=== PATIENT | female | born 2000 | race Caucasian/White ===

== ENCOUNTER 2023-07-21 07:04 | Outpatient (RCR) | payer OTHER, SELFPAY ==
[2023-07-21 08:52] LABS: Hematocrit 35.1 % (37.0-47.0); Hemoglobin 11.1 g/dL (12.0-15.0)
[2023-07-21 09:08] LABS: Glucose 1 Hour PP 50gm Dose 107 mg/dL
[2023-07-21 09:44] LABS: HIV 1/2 Ab P24 Ag Result Negative (Negative)
[2023-07-21] MEDS: RHO(D) IMMUNE GLOBULIN 300 MCG/2 ML SYRINGE IM (15:44)
== END 2023-10-19 23:59 | disposition home or self-care (01) ==
LOC: ANHLAB 07:04
PROVIDERS: PCP Family Medicine; Visit Provider Advanced Practice Midwife
DX: Z11.4 Encounter for screening for human immunodeficiency virus [HIV] (principal); Z29.13 Encounter for prophylactic Rho(D) immune globulin; O36.0130 Maternal care for anti-D [Rh] antibodies, third trimester, not applicable or unspecified; Z3A.00 Weeks of gestation of pregnancy not specified
CPT/HCPCS: 36415; 82947; 85014; 85018; 85461; 86703; 86850; 86900; 86901; 90384; 96372; G0432; J2790

== ENCOUNTER 2023-10-03 10:05 | Inpatient (IN) | payer OTHER, SELFPAY ==
[2023-10-03] VITALS (122 sets, daily range): BP systolic 82–154; BP diastolic 47–140; PULSE 70–205; RESP 16–19; TEMP 36.7–37.2; O2SAT 94–100; BMI 43.4
[2023-10-03] MEDS: LACTATED RINGERS 1,000 ML 125 ML IV CONT ×2 (11:41→15:00)
[2023-10-03] MEDS: AMPICILLIN 2 GM/NS 100 ML 2 GM/100 ML BAG IVPB (11:41)
[2023-10-03 11:45] LABS: Basophils Absolute Auto 0.1 K/mm3 (0.0-0.1); Basophils Percent Auto 0.4 % (0.2-1.2); Eosinophils Absolute Auto 0.1 K/mm3 (0-0.3); Eosinophils Percent Auto 0.4 % (0-4.4); Hematocrit 39.4 % (37.0-47.0); Hemoglobin 12.5 g/dL (12.0-15.0); Immature Granulocyte Absolute 0.13 K/mm3 (0.00-0.031); Immature Granulocyte Percent A 0.9 % (0-0.5); Lymphocytes Absolute Auto 2.45 K/mm3 (0.9-3.2); Lymphocytes Percent Auto 16.7 % (18.3-44.2); Mean Corpuscular HGB Conc 31.7 g/dl (32-36); Mean Corpuscular Hemoglobin 27.7 pg (26-34); Mean Corpuscular Volume 87.2 fl (80-100); Mean Platelet Volume 10.9 fl (7.4-10.4); Monocytes Absolute Auto 0.9 K/mm3 (0.1-0.6); Neutrophils Absolute Auto 11.1 K/mm3 (1.3-6.7); Neutrophils Percent Auto 75.6 % (45.5-73.1); Platelet Count Result 255 k/mm3 (150-375); Red Blood Count 4.52 M/mm3 (4.2-5.4); Red Cell Distribution Width 15.8 % (11.5-14.5); White Blood Count 14.7 K/mm3 (4.5-10.0)
--- NOTE | 2023-10-03 11:47 | LDADM ---
This patient, Gabriela Ibarra, was admitted to Labor/Delivery/Recovery 105 on 10/03/23 at 10:05. Plans for labor, pain management and were discussed with patient. Patient/family oriented to hospital policies and general routines including ID bracelet, bed and alarms, visiting hours, pain management, procedures, bathroom and other care routines, personal items, smoking policy, room service/diet and guest tray routines, security routines, and visiting hours. Patient/Family are encouraged to report perceived risks to care and to ask questions if they do not understand what they are told or what they should do. See OBIX for further documentation.
--- NOTE | 2023-10-03 12:45 | P.PNAN_ITS ---
Anes - Eval Pre Procedure Procedure: labor epidural Date/Time: 10/03/23 12:45 Surgeon: Jesse Preop Diagnosis: pain during labor Pre Op Diagnosis: Labor Patient Data Age: 23 Gender: F Height: 1.63 m Weight: 115 kg Last Vital Signs Pulse 78 10/03/23 12:16 BP 123/71 10/03/23 12:16 Pulse Ox 100 10/03/23 12:43 O2 Del Method Room Air 10/03/23 11:46 Allergies Allergy/AdvReac Type Severity Reaction Status Date / Time No Known Allergies Allergy Verified 09/10/23 12:33 Home Medications Medication Instructions Recorded Confirmed Type Classic 1 tab-cap PO DAILY 09/10/23 09/10/23 History Laboratory Tests 10/03/23 11:19 WBC 14.7 H K/mm3 (4.5-10.0) RBC 4.52 M/mm3 (4.2-5.4) Hgb 12.5 g/dL (12.0-15.0) Hct 39.4 % (37.0-47.0) MCV 87.2 fl (80-100) MCH 27.7 pg (26-34) MCHC 31.7 L g/dl (32-36) RDW 15.8 H % (11.5-14.5) Plt Count 255 k/mm3 (150-375) MPV 10.9 H fl (7.4-10.4) Immature Gran % (Auto) 0.9 H % (0-0.5) Neut % (Auto) 75.6 H % (45.5-73.1) Lymph % (Auto) 16.7 L % (18.3-44.2) [place] % (Auto) 6.0 % (2.6-8.5) Eos % (Auto) 0.4 % (0-4.4) Baso % (Auto) 0.4 % (0.2-1.2) Lymph # (Auto) 2.45 K/mm3 (0.9-3.2) [place] # (Auto) 0.9 H K/mm3 (0.1-0.6) Eos # (Auto) 0.1 K/mm3 (0-0.3) Baso # (Auto) 0.1 K/mm3 (0.0-0.1) Abs Immat Gran (auto) 0.13 H K/mm3 (0.00-0.031) Absolute Neuts (auto) 11.1 H K/mm3 (1.3-6.7) Absolute Nucleated RBC 0.0 K/mm3 (0.0-0.012) Nucleated RBC % 0.0 % (0.0-0.2) RPR Pending Patient hx anesthesia problems: none Family hx anesthesia problems: none Results Review: All pre-operative results and documents have been reviewed as part of the pre- operative evaluation. PMF Family History Family History Other No pertinent family history Social History Social History Smoking status: Never smoker Alcohol intake: never Substance use: never Lack of Transportation: No Lack of Food: Never True Current Housing: I Have Housing Concerned About Future Housing: No Difficulty Paying Gas/Electric Bills: No Difficulty Paying for Meds: No Currently Unemployed: No Education: Associate Degree Difficulty w/ Childcare or Family Care: No Spiritual care concerns: No Exam Day of Procedure 10/03/23 12:45 Patient weight: normal Heart: regular rate and rhythm Lungs: normal air movement Airway: Mallampati scale class II Neurological: alert and oriented
--- NOTE | 2023-10-03 13:20 | WPDOBADMIT ---
Obstetrics - Admit Note Admission Note: record reviewed. No pertinent additions to the history and/or any subsequent changes in the physical findings that are not consistent with the expected course of the were found. Additions to the history and/or subsequent changes in the physical findings follow. SVE /-2, AROM small amount of clear, odorless fluid, anticipate vaginal delivery
[2023-10-03] MEDS: OXYTOCIN 30 UNITS/NS 500 ML 30 UNITS/500 ML BAG IV CONT (13:50)
[2023-10-03] MEDS: AMPICILLIN 1 GM/NS 50 ML 1 GM/50 ML BAG IVPB (15:49)
[2023-10-03] MEDS: SODIUM CHLORIDE 0.9% IV 300 ML 600 ML I-UTERINE (16:05)
--- NOTE | 2023-10-03 18:18 | PM.OBPRVD ---
OB - Vaginal Delivery Note Procedure Delivery date: 10/03/23 Induction method: None Delivery augmentation: Rupture of Membranes and Pitocin Delivery monitor: External FHT and Internal FHT Route of delivery: Episiotomy description: None Laceration Description: Vaginal and Labial (right) Delivery repair: vicryl Specimen: No Quantitative Blood Loss (ml): 100 Anesthesia type: Epidural Disposition: Floor Complications: None [place] Baby Date of : 10/03/23 Time of : 18:04 Weeks of gestation at delivery: 39 gender: Female presentation: vertex position: Left Occiput Anterior Placenta delivery description: Spontaneous Cord Vessel Description: 3 Vessels, Nuchal Cord (x1), Reduced and Delayed Cord Clamping score one minute: 8 score five minutes: 9 Narrative: mother and baby skin to skin in stable condition
[2023-10-03] MEDS: OXYTOCIN 30 UNITS/NS 500 ML 30 UNITS/500 ML BAG 125 UNITS IV CONT (18:44)
[2023-10-03] MEDS: BENZOCAINE 20% AER SPR (*SP) 56 GM CAN 1 SPRAY TOPICAL (20:25)
[2023-10-03] MEDS: WITCH HAZEL 40 PADS 1 PAD TOPICAL (20:25)
--- NOTE | 2023-10-03 20:42 | PC.NURSE ---
Patient transferred to post room #286 via ( W/C ). Support person present. Oriented to unit, room, information board, rooming in, admission packet and security measures. Patient verbalizes understanding.
[2023-10-04 00:10] VITALS: BP 118/66; PULSE 92; RESP 18; TEMP 36.8; O2SAT 99
[2023-10-04] MEDS: IBUPROFEN 600 MG TABLET PO ×3 (00:10→22:48)
[2023-10-04 05:56] LABS: Hemoglobin 10.4 g/dL (12.0-15.0)
--- NOTE | 2023-10-04 07:47 | WPDANLDPN2 ---
Anes-Prog Note L&D Date/Time: 10/04/23 07:47 Comfortable throughout: labor and delivery Neuraxial method: epidural Epidural/Spinal procedure site: clean & non-tender Neuro status: Neuro function grossly intact. Cardiovascular status: normal Respiratory status: normal Airway patency: baseline Mental status: baseline Post-Op hydration status: normal Vital Signs: Last Vital Signs Temp 36.8 C 10/04/23 00:10 Pulse 92 10/04/23 00:10 Resp 18 10/04/23 00:10 BP 118/66 10/04/23 00:10 Pulse Ox 99 10/04/23 00:10 O2 Del Method Room Air 10/03/23 21:30 Pain score (VAS): 0/10 at this time I/O: Intake & Output 10/03/23 10/03/23 10/04/23 15:59 23:59 07:59 Intake Total 1100 500 Output Total 100 Balance 1100 400 Patient feedback: Patient satisfied with anesthetic care.
--- NOTE | 2023-10-04 07:50 | PM.OBPNVD ---
OB - PN: Subj Subjective Date/time seen: 10/04/23 07:50 Interval history: pp day 1 doing well bottle feeding no complaints OB - PN: Obj Data Labs 10/04/23 05:49 Labs: Laboratory Results - last 24 hr 10/03/23 10/04/23 11:19 05:49 WBC 14.7 H RBC 4.52 Hgb 12.5 10.4 L Hct 39.4 33.0 L MCV 87.2 MCH 27.7 MCHC 31.7 L RDW 15.8 H Plt Count 255 MPV 10.9 H Immature Gran % (Auto) 0.9 H Neut % (Auto) 75.6 H Lymph % (Auto) 16.7 L [place] % (Auto) 6.0 Eos % (Auto) 0.4 Baso % (Auto) 0.4 Lymph # (Auto) 2.45 [place] # (Auto) 0.9 H Eos # (Auto) 0.1 Baso # (Auto) 0.1 Abs Immat Gran (auto) 0.13 H Absolute Neuts (auto) 11.1 H Absolute Nucleated RBC 0.0 Nucleated RBC % 0.0 Blood Type O Negative O Negative Antibody Screen Negative Negative Screen Negative Baby's Blood Type O pos Baby's BENY Negative Doses of RhIg Required 1 OB - PN A/P Plan day: 1 Plan: routine care Time Spent With Patient Time: Total time spent is greater than 50% in coordination of care (as documented) at patient's floor/unit and/or counseling patient: Review of Systems Review of Systems: All systems reviewed & are unremarkable except as noted in HPI and below Exam Const: General: cooperative, healthy appearing and comfortable Resp: Effort & Inspection: normal respiratory effort Cardio: Rate: regular rate Rhythm: regular rhythm Back/Spine/Pelvis: Back: no CVA tenderness Skin: General skin exam: normal color Neuro: General: patient oriented x3 Extrem: Right lower extremity: normal to inspection Left lower extremity: normal to inspection Psych: Appearance: grossly normal
[2023-10-04 08:00] VITALS: BP 108/70; PULSE 77; RESP 14; TEMP 37.1; O2SAT 99
[2023-10-04] MEDS: DOCUSATE SODIUM 100 MG CAPSULE PO (08:55)
[2023-10-04] MEDS: MULTIVIT/MIN/PREN/FOL AC/IRON TABLET 1 TAB PO (08:56)
[2023-10-04] MEDS: RHO(D) IMMUNE GLOBULIN 300 MCG/2 ML SYRINGE IM (11:20)
--- NOTE | 2023-10-04 14:15 | PC.NURSE ---
Patient viewed the discharge video Mother & Baby Care, The First Two Weeks . Patient was given the opportunity and encouraged to ask questions. Patient verbalized understanding of information shared and has been given the mother/baby guide for home reference.
[2023-10-04 14:53] LABS: Rapid Plasma Reagin Non-Reactive (NonReactive)
[2023-10-04] MEDS: ACETAMINOPHEN 325 MG TABLET 650 MG PO (14:56)
[2023-10-04] MEDS: WITCH HAZEL 40 PADS 1 PAD TOPICAL (22:48)
[2023-10-05 00:30] VITALS: BP 129/88; PULSE 78; RESP 16; TEMP 36.6; O2SAT 99
[2023-10-05] MEDS: IBUPROFEN 600 MG TABLET PO (07:27)
[2023-10-05] MEDS: DOCUSATE SODIUM 100 MG CAPSULE PO (07:28)
[2023-10-05 09:12] VITALS: BP 127/83; PULSE 67; RESP 20; TEMP 36.8; O2SAT 100
--- NOTE | 2023-10-05 09:13 | PM.OBPNVD ---
OB - PN: Subj Subjective Date/time seen: 10/05/23 09:13 Interval history: pp day 2 doing well bottle feeding no complaints Ready for discharge home today OB - PN: Obj Data Labs 10/04/23 05:49 Labs: Laboratory Results - last 24 hr 10/03/23 10/04/23 11:19 05:49 RPR Non-reactive Blood Type O Negative Antibody Screen Negative Screen Negative Baby's Blood Type O pos Baby's BENY Negative Doses of RhIg Required 1 OB - PN A/P Plan day: 2 Plan: discharge home and follow up 6 weeks Time Spent With Patient Time: Total time spent is greater than 50% in coordination of care (as documented) at patient's floor/unit and/or counseling patient: Review of Systems Review of Systems: All systems reviewed & are unremarkable except as noted in HPI and below Exam Const: General: cooperative, healthy appearing and comfortable Resp: Effort & Inspection: normal respiratory effort Cardio: Rate: regular rate Rhythm: regular rhythm Back/Spine/Pelvis: Back: no CVA tenderness Skin: General skin exam: normal color Neuro: General: patient oriented x3 Extrem: Right lower extremity: normal to inspection Left lower extremity: normal to inspection Psych: Appearance: grossly normal
--- NOTE | 2023-10-05 09:15 | P.DS_ITS ---
DS: Admitting Diagnosis Discharge Date 10/05/23 Admitting Diagnosis Labor OB - DS: Summary OB Procedures : None OB Procedures Intrapartum: Spontaneous Vag Delivery OB Procedures: : None Peripartum Data Laceration Description: Vaginal and Labial (right) Episiotomy description: None Time Spent with Patient Time attestation: Total time spent providing and/or coordinating discharge services: DS: Data Data Completed and Pending Labs on day of discharge: Labs from last 24 hours 10/04/23 10/03/23 05:49 11:19 RPR Non-reactive Blood Type O Negative Antibody Screen Negative Screen Negative Baby's Blood Type O pos Baby's BENY Negative Doses of RhIg Required 1 Discharge Plan Discharge Attending physician on discharge: Sourav Leach Discharging Clinician: Sourav Leach Patient Disposition: Home, Self-Care Activity: may shower, as tolerated and pelvic rest Diet: as tolerated Patient Instructions: Antibiotic Form Stand Alone Forms: General Discharge Information Follow-up/Referrals: Marie Aleman CNM [Certified Nurse Chemical Laboratory Scientist] - 4 Weeks ( visit 4-6 weeks) Discharge Medications: Continued Classic 1 tab-cap PO DAILY Date of admission: 10/03/23 10:05 Primary Care Provider: NeoGreg Admitting Provider: Niall Molina Attending physician on admission: Niall Molina Condition: Stable
--- NOTE | 2023-10-05 09:16 | WPDANLDPN2 ---
Anes-Prog Note L&D Date/Time: 10/05/23 09:16 Comfortable throughout: labor and delivery Neuraxial method: epidural Epidural/Spinal procedure site: clean & non-tender Neuro status: Neuro function grossly intact. Cardiovascular status: normal Respiratory status: normal Airway patency: baseline Mental status: baseline Post-Op hydration status: normal Vital Signs: Last Vital Signs Temp 36.8 C 10/05/23 09:12 Pulse 67 10/05/23 09:12 Resp 20 10/05/23 09:12 BP 127/83 10/05/23 09:12 Pulse Ox 100 10/05/23 09:12 O2 Del Method Room Air 10/05/23 00:30 Pain score (VAS): 2/10 Patient feedback: Patient satisfied with anesthetic care.
[2023-10-06 11:17] VITALS: BP 111/84; PULSE 95; RESP 18; TEMP 37.1; O2SAT 100
== END 2023-10-05 12:35 | disposition home or self-care (01) | DRG 807 ==
LOC: ANHLDR 12:15 → ANHOB2 10-05 09:15 → ANHLDR 10-06 07:38 → ANHOB2 10-06 07:38
PROVIDERS: Admitting Provider Obstetrics & Gynecology; PCP Family Medicine; Referring Provider Advanced Practice Midwife; Visit Provider Obstetrics & Gynecology
DX: O99.824 Streptococcus B carrier state complicating childbirth (principal); Z37.0 Single live birth; O70.0 First degree perineal laceration during delivery; O69.81X0 Labor and delivery complicated by cord around neck, without compression, not applicable or unspecified; Z3A.39 39 weeks gestation of pregnancy
CPT/HCPCS: 36415; 85014; 85018; 85025; 85461; 86592; 86850; 86900; 86901; 90384; A9270; J0290; J2590; J2790; J2795; J7030; J7120

== ENCOUNTER 2024-07-22 12:34 | Emergency (ER) | payer OTHER, SELFPAY ==
--- NOTE | 2024-07-22 12:41 | ED.SKABFB ---
HPI - Skin/Abscess/Foreign Bdy General Chief complaint: Wound/Laceration Stated complaint: RT hand finger cut Time Seen by Provider: 07/22/24 12:41 Source: patient, RN notes reviewed and old records reviewed Mode of arrival: ambulatory Limitations: no limitations History of Present Illness HPI narrative: 24 year female to [facility] for complaint laceration to distal tip right thumb with basal just prior to arrival. Bleeding controlled on arrival. Patient calm and cooperative. Patient denies numbness, tingling, prior injury, weakness in digit, decreased ROM. Patient's tetanus status up-to-date. Respirations even and nonlabored. Patient in no acute distress. Related Data Home Medications Medication Instructions Recorded Confirmed Classic 1 tab-cap PO DAILY 09/10/23 09/10/23 Allergies Allergy/AdvReac Type Severity Reaction Status Date / Time No Known Allergies Allergy Verified 09/10/23 12:33 Review of Systems Review of Systems: All systems reviewed & are unremarkable except as noted in HPI and below Constitutional: Constitutional: Reports no additional constitutional complaints Eyes: Eyes: Reports no additional eye complaints ENT: Reports system reviewed and no additional complaints, except as documented Cardiovascular: Cardiovascular: Reports no additional cardiovascular complaints, Denies chest pain and Denies dyspnea Respiratory: Respiratory: Reports no additional respiratory complaints, Denies cough and Denies dyspnea Musculoskeletal: Musculoskeletal: Reports no additional musculoskeletal complaints Integumentary/Breasts: Skin/Breast: Reports as per HPI and Reports wounds ( Distal tip right thumb) Neurologic: Reports system reviewed and no additional complaints, except as documented Psychiatric: Psychiatric: Reports no additional psychiatric complaints [facility] Family History Family History Other No pertinent family history Social History Social History Smoking status: Never smoker Alcohol intake: never Substance use: never Lack of Transportation: No Lack of Food: Never True Current Housing: I Have Housing Concerned About Future Housing: No Difficulty Paying Gas/Electric Bills: No Difficulty Paying for Meds: No Currently Unemployed: No Education: Associate Degree Difficulty w/ Childcare or Family Care: No Spiritual care concerns: No Comments At the time of my signature, I reviewed and agree with the nursing past medical, surgical, social, and family history. There is no relevant family history pertinent to the patient complaint. Exam Const: General: cooperative, healthy appearing, comfortable, no acute distress, alert and well nourished Nutritional Appearance: well nourished Orientation/consciousness: patient oriented x3 Limitations: no limitations HENMT: Head: normal to inspection Ears: external ears normal Face/Nose/Sinus: Normal external nose present, Normal nares present, normal facial exam, No erythema and No edema Face and sinus: normal facial exam, no erythema and no edema Mouth: Yes Normal oral and palatal mucosa present Eyes: General: appearance normal, both eyes and all related structures Neck: Neck: normal visual inspection, full ROM and no meningeal signs Chest: Chest palpation & inspection: normal inspection of the chest Resp: Effort & Inspection: normal respiratory effort and able to speak in complete sentences Cardio: Jugular venous distension: no JVD Rate: regular rate Rhythm: regular rhythm Back/Spine/Pelvis: Cervical Spine: cervical ROM normal Skin: General skin exam: normal color and wounds noted Other: 0.5 cm irregular avulsion right distal tip thumb Neuro: General: patient oriented x3, gait normal, moves all extremities and no meningeal signs Speech: normal speech Gait exam (Neuro): Normal
[2024-07-22 12:44] VITALS: BP 113/86; PULSE 98; RESP 16; TEMP 37.3; O2SAT 98
== END 2024-07-22 13:09 | disposition home or self-care (01) ==
PROVIDERS: Emergency Provider Nurse Practitioner Family; PCP Family Medicine
DX: S61.001A Unspecified open wound of right thumb without damage to nail, initial encounter (principal); X58.XXXA Exposure to other specified factors, initial encounter
CPT/HCPCS: 99213; G0463